=== PATIENT | male | born 1955 | race Caucasian/White ===

== ENCOUNTER 2023-12-18 09:55 | Observation (INO) ==
[2023-12-18 10:48] LABS: Hematocrit (blood only) 39.8 % (42.0-52.0); Hemoglobin 13.9 g/dl (14.0-18.0); Mean Corpuscular Hemoglobin 30.2 pg (25.0-34.0); Mean Corpuscular Hgb Conc 34.9 g/dL (32.0-36.0); Mean Corpuscular Volume 86.5 fL (80.0-100.0); Mean Platelet Volume 10.6 fL (9.4-12.4); Platelet Count 174 K/uL (130-400); RDW Coefficient of Variation 12.7 % (11.5-14.5); RDW Standard Deviation 40.2 fL (36.4-46.3); White Blood Count 8.64 K/ul (4.8-10.8)
[2023-12-18 10:51] LABS: Partial Thromboplastin Time 28 Seconds (21-31)
[2023-12-18 11:03] LABS: Albumin Globulin Ratio 1.4 (0.9-2); Albumin Level 3.9 gm/dl (3.4-5.0); BUN Creatinine Ratio 25.8 (10-20); Bilirubin,Total 0.6 mg/dl (0.2-1.0); Calcium 9.3 mg/dl (8.6-10.3); Creatinine Clr Calc Pharmacy 88.5 ml/min; Est GFR (African American) 101.1 ml/min; Est GFR (Non-African American) 87.2 ml/min; Globulin 2.8 gm/dl (2.5-4.0); Potassium 4.1 mmol/L (3.5-5.1); Total Protein 6.7 gm/dl (6.0-8.3)
[2023-12-18 11:09] LABS: Troponin I High Sensitivity 2.6 pg/ml (0-20)
[2023-12-18 11:24] LABS: Influenza A virus by PCR Negative (Neg); Influenza B virus by PCR Negative (Neg); RSV by PCR Negative (Neg); SARS CoV2 RNA(COVID-19) Ceph NEGATIVE (Negative)
[2023-12-18] MEDS: OPTIRAY 320 100ml IV ONE (11:29)
--- NOTE | 2023-12-18 11:40 | Emergency Department Note ---
Impression & Plan GIB (gastrointestinal bleeding), Abdominal pain, left lower quadrant, Status post colonoscopy with polypectomy ED Provider Note NAME: DEACON ALVAREZ AGE: 68 SEX: M : 1955 ARRIVES VIA: Walk-In INFORMANT: Patient ED PROVIDER(S): Edil Shankar MD CHIEF COMPLAINT: Bloody stool PLAN: Disposition: Admit MEDICAL DECISION MAKING: The patient is a pleasant 68-year-old gentleman past medical history of GERD, BPH, diverticulitis who presents to the emergency department via walk-in, accompanied by his for evaluation of red blood/maroon stools ongoing since this morning in the setting of having a colonoscopy on 12/13 where he had 2 polyps removed. The patient reports that he started to move his bowels a day after his colonoscopy and this was loose and brown but red blood began today. He denies taking any anticoagulation. Otherwise he denies any fevers. He reports some discomfort in his left lower abdomen which he wondered if this could be related to history of diverticulosis/diverticulitis. Of note, the patient did arrive to emergency department during time of high volume, acuity and prolonged emergency department waiting times. Critical pathways initiated from triage. On evaluation the patient is no acute distress, afebrile stable vital signs. He appears clinically dry. Abdomen is benign. Rectal exam was performed and demonstrated maroon/bloody stool that is Hemoccult positive. WBC and platelets within normal limits. H/H13.9/39.8 decreased from hemoglobin of 16 in April 2023 without more recent for comparison. INR is within normal limits. Chemistry without metabolic acidosis. BUN/creatinine 25, consistent with patient's clinically dry appearance. LFTs unremarkable. High-sensitivity troponin 2.6, within normal limits. Stool BioFire and C. difficile PCR pending. COVID-19, influenza and RSV PCR's were negative. CT of the pelvis was performed and did not demonstrate acute abnormalities, fecal retention is noted. Given the persistence of the patient's GI bleeding patient does agree with plan for admission for further management/observation. Case was [place], [facility] [place] who will evaluate the patient for admission. Per hospitalist request I did also inform MASHA JIMENEZ Dr. Case. They will be available for inpatient team consultation. Triage Nursing notes reviewed and agree them. Prior/external medical records reviewed Vital Signs: reviewed Differential diagnosis: Diverticulosis, AVM, coagulopathy, colitis, inflammatory bowel disease, malignancy, Daya-Pyle tear, esophagitis, peptic ulcer disease, variceal bleed, gastritis, epistaxis, fissure, hemorrhoids, as well as other pathologies. ER treatment provided: See below. Diagnostics interpreted by me: ECG: Normal sinus rhythm, 78 bpm, no ectopy, no overt ST ovation depression, QTc 442, QRS 116. Cardiac Monitoring: An order for continuous cardiac monitoring was placed and demonstrated Normal sinus rhythm, 78 bpm, no ectopy. Laboratory studies: See below Imaging studies: See below Consultation(s): [place]. Henry, [facility] Goddard, MD GI. HPI: The patient is a pleasant 68-year-old gentleman past medical history of GERD, BPH, diverticulitis who presents to the emergency department via walk-in, accompanied by his for evaluation of red blood/maroon stools ongoing since this morning in the setting of having a colonoscopy on 12/13 where he had 2 polyps removed. The patient reports that he started to move his bowels a day after his colonoscopy and this was loose and brown but red blood began today. He denies taking any anticoagulation. Otherwise he denies any fevers. He reports some discomfort in his left lower abdomen which he wondered if this could be related to history of diverticulosis/diverticulitis. ROS: See above HPI for pertinent positives & negatives. A total of 10 systems reviewed and were otherwise negative. VITALS:See Below PHYSICAL EXAMINATION: GENERAL: Awake, alert, well-appearing, in no distress HENT: Normocephalic, atraumatic. Oropharynx with dry mucous membranes and otherwise unremarkable. EYES: Normal conjunctiva. Sclera non-icteric. NECK: Supple. No nuchal rigidity. FROM. No JVD. RESPIRATORY: Clear to auscultation. CARDIAC: Regular rate, normal rhythm. Extremities warm and well perfused. Pulses equal. ABDOMEN: Soft, non-distended. No tenderness to palpation. No rebound or guarding. No masses. RECTAL: Maroon stool with red blood. No melena. MUSCULOSKELETAL: Chest examination reveals no tenderness. The back is symmetrical on inspection without obvious abnormality. There is no CVA tenderness to palpation. No joint edema. LOWER EXTREMITIES: Calves are equal size bilaterally and non-tender. No edema. No discoloration. NEURO: Normal sensorium. No sensory or motor deficits noted. SKIN: No rash or jaundice noted. Edil Shankar MD Past Med/Surg History Medical History Seasonal allergies Diverticulosis History of COVID-19 "early 2021" - mild cold symptoms. BPH with obstruction/lower urinary tract symptoms GERD (gastroesophageal reflux disease) Surgical History History of colonoscopy History of surgery tendon repaired - quad x4 History of detached retina repair History of carpal tunnel release right History of arthroscopic knee surgery x2 left x1 right History of vasectomy H/O wisdom tooth extraction History of hernia repair inguinal hernia repair at age 4. Family History Mother Breast cancer Grandfather (Paternal) Colorectal cancer Father Prostate cancer Other No family history of adverse response to anesthesia Denies family history of Ovarian cancer Myocardial infarction Lung cancer Social History Smoking Status: Former smoker Tobacco Type: Cigarettes Age Started Using Tobacco: 15; Age Quit Using Tobacco: 24; packs per day: 0.5; Second Hand Exposure: No; Do You Dip or Chew Tobacco: No; Hx Alcohol Use: No Hx Substance Use: No Preferred Language: Urdu Communication Ability: Effective Visual Impairment: Limited Hearing Ability: Normal Centrifugal Supervisor Required: No Beliefs That Will Affect Care: None marital status: Current Living Situation: Spouse current occupational status: retired How many Children do You have: 2 Other Information That Helps Us Care for You: No Feels Safe at Home: Yes Safety Concerns: Feels Safe At This Time Childhood Exposure to Second-Hand Smoke: No caffeine: Yes Dental Care, Regularly: Yes Physical Activity Frequency: Daily Seatbelt Use: always Sunscreen Use: Yes Assistive Devices: Glasses Allergies Allergies Allergy/AdvReac Type Severity Reaction Status Date / Time cat dander Allergy Severe Verified 12/14/23 09:29 dog dander Allergy Mild Verified 12/14/23 09:29 No Known Drug Allergies Allergy Verified 12/14/23 09:29 pollen extracts AdvReac Severe asthma Verified 12/14/23 09:29 attacks shellfish derived AdvReac Severe "sensitivity" Verified 12/14/23 09:29 severe GI distress Home Meds Home Medications Medication Instructions Recorded Confirmed albuterol sulfate 90 mcg/actuation 2 puff inhalation Q6H PRN rescue 10/27/22 12/18/23 aerosol inhaler (Ventolin HFA) inhaler ascorbic acid (vitamin C) 250 mg 250 mg PO BID 10/27/22 12/18/23 tablet aspirin 81 mg tablet,delayed 81 mg PO QPM 10/27/22 12/18/23 release (Adult Low Dose Aspirin) cholecalciferol (vitamin D3) 125 125 mcg PO QAM 10/27/22 12/18/23 mcg (5,000 unit) capsule ibuprofen 200 mg tablet 400 mg PO Q6H PRN Pain 10/27/22 12/18/23 melatonin 3 mg capsule 3 mg PO HS PRN Insomnia 10/27/22 12/18/23 metronidazole 0.75 % topical gel 1 applic topical BID 10/27/22 12/18/23 minocycline 50 mg capsule 50 mg PO QPM roscea 10/27/22 12/18/23 montelukast 10 mg tablet 10 mg PO HS 10/27/22 12/18/23 vitamin B complex 1 tab PO DAILY 10/27/22 12/18/23 fluticasone propionate 50 2 spray intranasal DAILY 04/27/23 12/18/23 mcg/actuation nasal spray,suspension acetaminophen 650 mg 1,300 mg PO HS 11/30/23 12/18/23 tablet,extended release (Tylenol 8 Hour) antiarthritic combination no.2 900 900 mg PO BID 11/30/23 12/18/23 mg tablet (glucosamine-chondroitin) alprazolam 0.5 mg tablet (Xanax) 0.5 mg PO HS 12/02/23 12/18/23 esomeprazole magnesium 40 mg 40 mg PO QPM 12/02/23 12/18/23 capsule,delayed release (Nexium) fexofenadine 180 mg tablet 180 mg PO QAM PRN seasonal 12/02/23 12/18/23 allergies hyoscyamine sulfate 0.125 mg 0.125 mg PO TID 12/02/23 12/18/23 tablet (Levsin) quercetin 250 mg PO BID 12/02/23 12/18/23 vitamin E 400 unit tablet 400 unit PO QPM 12/02/23 12/18/23 zinc 15 mg tablet 15 mg PO BID 12/02/23 12/18/23 Results & Data (ED) Vital Signs Vital Signs - 24 hr 12/18/23 09:58 12/18/23 10:34 12/18/23 12:08 Temperature 36.6 C Temperature Source Temporal Artery Scan Pulse Rate 100 H 89 Pulse Rate [Apical] 79 Respiratory Rate 20 18 Respiratory Effort / Characteristics Non-Labored Non-Labored Spontaneous Respiratory Depth Normal Normal Respiratory Pattern Regular Blood Pressure 112/53 L Blood Pressure [Right Arm] 106/81 Blood Pressure Mean 72 Blood Pressure Mean [Right Arm] 89 Blood Pressure Position [Right Arm] Pulse Oximetry 99 98 Oxygen Delivery Method Room Air Room Air Sepsis Recent Fever Within 48 Hours No Sepsis New/Unexplained Change in Mental Status No Sepsis Action Taken by Nursing No Action Required 12/18/23 12:09 12/18/23 14:11 12/18/23 14:26 Temperature Temperature Source Pulse Rate 84 Pulse Rate [Apical] 85 Respiratory Rate 18 Respiratory Effort / Characteristics Non-Labored Spontaneous Respiratory Depth Normal Respiratory Pattern Regular Blood Pressure Blood Pressure [Right Arm] 107/83 Blood Pressure Mean Blood Pressure Mean [Right Arm] 91 Blood Pressure Position [Right Arm] Lying Pulse Oximetry 98 97 Oxygen Delivery Method Room Air Room Air Sepsis Recent Fever Within 48 Hours Sepsis New/Unexplained Change in Mental Status Sepsis Action Taken by Nursing 12/18/23 16:00 Temperature Temperature Source Pulse Rate Pulse Rate [Apical] 90 Respiratory Rate Respiratory Effort / Characteristics Respiratory Depth Respiratory Pattern Blood Pressure Blood Pressure [Right Arm] 122/84 Blood Pressure Mean Blood Pressure Mean [Right Arm] 96 Blood Pressure Position [Right Arm] Lying Pulse Oximetry Oxygen Delivery Method Sepsis Recent Fever Within 48 Hours Sepsis New/Unexplained Change in Mental Status Sepsis Action Taken by Nursing Laboratory Data Attestation: I reviewed the patient's lab results. 12/19/23 01:17 12/18/23 10:22 Lab Results 12/18/23 12/18/23 12/18/23 Range/Units 10:21 10:22 10:25 WBC 8.64 (4.8-10.8) K/ul RBC 4.60 L (4.70-6.10) M/uL Hgb 13.9 L (14.0-18.0) g/dl Hct 39.8 L (42.0-52.0) % MCV 86.5 (80.0-100.0) fL MCH 30.2 (25.0-34.0) pg MCHC 34.9 (32.0-36.0) g/dL RDW Std Deviation 40.2 (36.4-46.3) fL RDW Coeff of Chase 12.7 (11.5-14.5) % Plt Count 174 (130-400) K/uL MPV 10.6 (9.4-12.4) fL PT 11.0 (9.0-12.0) Seconds INR 1.0 (0.9-1.1) APTT 28 (21-31) Seconds PTT Ratio 1.0 Sodium 139 (136-145) mmol/L Potassium 4.1 (3.5-5.1) mmol/L Chloride 106 (98-107) mmol/L Carbon Dioxide 27 (21-32) mmol/L Anion Gap 6 (3-11) BUN 23 (6-23) mg/dl Creatinine 0.89 (0.6-1.4) mg/dl Est Cr Clr Drug Dosing 88.5 ml/min Est GFR ( Amer) 101.1 ml/min Est GFR (Non-Af Amer) 87.2 ml/min BUN/Creatinine Ratio 25.8 H (10-20) Glucose 102 H (70-99(Fasting)) mg/dl Calcium 9.3 (8.6-10.3) mg/dl Total Bilirubin 0.6 (0.2-1.0) mg/dl AST 18 (13-39) U/L ALT 19 (7-52) U/L Alkaline Phosphatase 63 (34-104) U/L Troponin I High Sens 2.6 (0-20) pg/ml Total Protein 6.7 (6.0-8.3) gm/dl Albumin 3.9 (3.4-5.0) gm/dl Globulin 2.8 (2.5-4.0) gm/dl Albumin/Globulin Ratio 1.4 (0.9-2) POC Stool Occult Blood (Negative) Stl C. cayetanensis PCR (NotDetected) Stool Rotavirus A PCR (NotDetected) Stl Adenov F 40/41 PCR (NotDetected) Stool Astrovirus (PCR) (NotDetected) Stool Campylobacter PCR (NotDetected) Stl C. diff Tox B Gene (Neg) Stool Cryptosporidium PCR (NotDetected) Stl E.coli Shiga Tox PCR (NotDetected) Stl Enterotoxigenic E PCR (NotDetected) Stool EPEC (PCR) (NotDetected) Stool EAEC (PCR) (NotDetected) Stl E. histolytica PCR (NotDetected) Stool Giardia Lamblia PCR (NotDetected) Stool Salmonella PCR (NotDetected) Stool Sapovirus (PCR) (NotDetected) Stl P. shigelloides PCR (NotDetected) Stl Shigella/EIEC PCR (NotDetected) St Y.enterocolitica PCR (NotDetected) Stool Vibrio (PCR) (NotDetected) Stl Vibrio cholerae PCR (NotDetected) Stl Norovirus GI/GII PCR (NotDetected) SARS-CoV-2 (PCR) NEGATIVE (Negative) Influenza Type A (PCR) Negative (Neg) Influenza Type B (PCR) Negative (Neg) RSV (RT-PCR) Negative (Neg) Blood Type A Positive Antibody Screen NEGATIVE 12/18/23 12/18/23 Range/Units 15:58 16:15 WBC (4.8-10.8) K/ul RBC (4.70-6.10) M/uL Hgb (14.0-18.0) g/dl Hct (42.0-52.0) % MCV (80.0-100.0) fL MCH (25.0-34.0) pg MCHC (32.0-36.0) g/dL RDW Std Deviation (36.4-46.3) fL RDW Coeff of Chase (11.5-14.5) % Plt Count (130-400) K/uL MPV (9.4-12.4) fL PT (9.0-12.0) Seconds INR (0.9-1.1) APTT (21-31) Seconds PTT Ratio Sodium (136-145) mmol/L Potassium (3.5-5.1) mmol/L Chloride (98-107) mmol/L Carbon Dioxide (21-32) mmol/L Anion Gap (3-11) BUN (6-23) mg/dl Creatinine (0.6-1.4) mg/dl Est Cr Clr Drug Dosing ml/min Est GFR ( Amer) ml/min Est GFR (Non-Af Amer) ml/min BUN/Creatinine Ratio (10-20) Glucose (70-99(Fasting)) mg/dl Calcium (8.6-10.3) mg/dl Total Bilirubin (0.2-1.0) mg/dl AST (13-39) U/L ALT (7-52) U/L Alkaline Phosphatase (34-104) U/L Troponin I High Sens (0-20) pg/ml Total Protein (6.0-8.3) gm/dl Albumin (3.4-5.0) gm/dl Globulin (2.5-4.0) gm/dl Albumin/Globulin Ratio (0.9-2) POC Stool Occult Blood Positive A (Negative) Stl C. cayetanensis PCR Not Detected (NotDetected) Stool Rotavirus A PCR Not Detected (NotDetected) Stl Adenov F 40/41 PCR Not Detected (NotDetected) Stool Astrovirus (PCR) Not Detected (NotDetected) Stool Campylobacter PCR Not Detected (NotDetected) Stl C. diff Tox B Gene Negative Cdiff Gene (Neg) Stool Cryptosporidium PCR Not Detected (NotDetected) Stl E.coli Shiga Tox PCR Not Detected (NotDetected) Stl Enterotoxigenic E PCR Not Detected (NotDetected) Stool EPEC (PCR) Not Detected (NotDetected) Stool EAEC (PCR) Not Detected (NotDetected) Stl E. histolytica PCR Not Detected (NotDetected) Stool Giardia Lamblia PCR Not Detected (NotDetected) Stool Salmonella PCR Not Detected (NotDetected) Stool Sapovirus (PCR) Not Detected (NotDetected) Stl P. shigelloides PCR Not Detected (NotDetected) Stl Shigella/EIEC PCR Not Detected (NotDetected) St Y.enterocolitica PCR Not Detected (NotDetected) Stool Vibrio (PCR) Not Detected (NotDetected) Stl Vibrio cholerae PCR Not Detected (NotDetected) Stl Norovirus GI/GII PCR Not Detected (NotDetected) SARS-CoV-2 (PCR) (Negative) Influenza Type A (PCR) (Neg) Influenza Type B (PCR) (Neg) RSV (RT-PCR) (Neg) Blood Type Antibody Screen Administered Medications Lactated Ringer's (Lr) 1,000 mls @ 125 mls/hr IV .Q8H RAVINDER Stop: 01/17/24 16:44 Last Admin: 12/18/23 23:58 Dose: 125 mls/hr Documented By: Infusion: 12/18/23 23:58 Dose: Infused Documented By: Admin: 12/18/23 16:45 Dose: 125 mls/hr Documented By: TERRENCE Discontinued Medications Sodium Chloride (Nss) 1,000 mls @ 999 mls/hr IV .Q1H1M ONE Stop: 12/18/23 12:12 Last Infusion: 12/18/23 13:14 Dose: Infused Documented By: Admin: 12/18/23 11:44 Dose: 999 mls/hr Documented By: JOANNK Pantoprazole Sodium 40 mg/ (Syringe) 10 mls @ 5 mls/min IV NOW ONE Stop: 12/18/23 17:15 Last Admin: 12/18/23 19:40 Dose: 5 mls/min Documented By: HIEN Ioversol (Optiray 320 100ml) 93 ml IV ONCE ONE Stop: 12/18/23 11:30 Last Admin: 12/18/23 11:29 Dose: 93 ml Documented By: ANUPAM Imaging Data Radiologist's Impression: Abdomen/Pelvis CT 12/18/23 11:[address] WITH IV CONTRAST CT DOSE: 1229.5 mGy.cm HISTORY: abd pain, red blood per rectum TECHNIQUE: Multiaxial CT images of the abdomen and pelvis were performed following the use of intravenous contrast. A dose lowering technique was utilized adhering to the principles of ALARA. COMPARISON STUDY: Abdomen and pelvis CT 10/27/2022. FINDINGS: Minimal tree-in-bud nodules again noted within the right middle lobe. The left lung base is clear. No pneumoperitoneum. No pneumatosis. Degenerative changes within the lumbar spine. No acute fractures. The liver, gallbladder, pancreas, spleen, and adrenal glands are unremarkable. The kidneys enhance normally. No hydronephrosis. Mild calcified plaque within the normal caliber abdominal aorta. The main portal vein is patent. No retroperitoneal or pelvic lymphadenopathy. No pelvic free fluid. The prostate gland remains mildly enlarged. No bladder wall thickening. Moderate fecal retention. No bowel wall thickening or obstruction. Colonic diverticulosis. No evidence for acute diverticulitis. Normal appendix. IMPRESSION: 1. No bowel wall thickening or obstruction. 2. Colonic diverticulosis. No evidence for acute diverticulitis. 3. Moderate fecal retention. 4. Prostatomegaly, unchanged. ACT 112: Negative or not required by law. Electronically signed by: Ronald Cheatham M.D. 12/18/2023 12:07 PM Discharge Plan Visit Data Chief Complaint: Rectal Bleed Stated Complaint: HAD COLONOSCOPY 12/14/23 - BLOOD IN STOOL ED Provider: Edil Shankar Discharge Problem: GIB (gastrointestinal bleeding), Abdominal pain, left lower quadrant, Status post colonoscopy with polypectomy Patient Disposition: Admitted As Inpatient Discharge Instructions Interventions: ED Discharge Assessment Last Done: 12/18/23 21:28 Discharge Problem: GIB (gastrointestinal bleeding) Qualifiers: GI bleed type/associated pathology: unspecified gastrointestinal hemorrhage type Qualified Code(s): K92.2 - Gastrointestinal hemorrhage, unspecified
[2023-12-18] MEDS: SODIUM CHLORIDE 0.9% 1,000 ML IV ONE (11:44)
--- NOTE | 2023-12-18 12:09 | CT Scan Report ---
ABDOMEN AND PELVIS CT WITH IV CONTRAST CT DOSE: 1229.5 mGy.cm HISTORY: abd pain, red blood per rectum TECHNIQUE: Multiaxial CT images of the abdomen and pelvis were performed following the use of intrave nous contrast. A dose lowering technique was utilized adhering to the principles of ALARA. COMPARISON STUDY: Abdomen and pelvis CT 10/27/2022. FINDINGS: Minimal tree-in-bud nodules again noted within the right middle lobe. The left lung base is clear. No pneumoperitoneum. No pneumatosis. Degenerative changes within the lumbar spine. No acute f ractures. The liver, gallbladder, pancreas, spleen, and adrenal glands are unremarkable. The kidneys enhance normally. No hydronephrosis. Mild calcified plaque within the normal caliber abdominal aorta. The main portal vein is patent. No retroperitoneal or pelvic lymphadenopathy. No pelvic free fluid. The prostate gland remains mildly enlarged. No bladder wall thickening. Moderate fecal retention. No bowel wall thickening or obstruction. Colonic diverticulosis. No evidence for acute diverticulitis. N ormal appendix. IMPRESSION: 1. No bowel wall thickening or obstruction. 2. Colonic diverticulosis. No evidence for acute diverticulitis. 3. Moderate fecal retention. 4. Prostatomegaly, unchanged. ACT 112: Negative or not required by law. Electronically signed by: Ronald Cheatham M.D. 12/18/2023 12:07 PM
--- NOTE | 2023-12-18 16:17 | Electrocardiogram Report ---
Test Reason : Blood Pressure : / mmHG Vent. Rate : 078 BPM Atrial Rate : 078 BPM P-R Int : 164 ms QRS Dur : 116 ms QT Int : 388 ms P-R-T Axes : 033 -32 045 degrees QTc Int : 442 ms Normal sinus rhythm Left axis deviation Abnormal ECG When compared with ECG of 20-NOV-2013 13:43, No significant change was found Confirmed by Faisal Hicks ([id number]) on 12/18/2023 4:17:21 PM Referred By: REFERRED SELF Confirmed By:Faisal Hicks
--- NOTE | 2023-12-18 16:36 | History & Physical Report ---
Date of Service December 18, 2023 Assessment & Plan (1) Upper GI bleed: Plan: Loose/bloody stool at the beginning the morning of 12/17 x 4 episodes throughout the day Patient describes it as a "raspberry jelly-like" texture and color; denies melena Colonoscopy on 12/13 Hemoccult positive on arrival Hgb 13.9 on arrival BUN/creatinine elevated at 25.8 A/P revealed diverticulosis without evidence of diverticulitis Likely suspect a lower GI bleed in the setting of recent colonoscopy Strict n.p.o. IVF with LR at 125mL/hr Trend H&H q4h x 3 Blood informed consent obtained; type & screen Avoid NSAIDs/aspirin A.m. CBC, BMP (2) GERD (gastroesophageal reflux disease): Plan: Nexium 40 mg p.o. --> Protonix 40 mg IV daily Plan Disposition: Obs -admit to [facility] telemetry Full code Keep n.p.o. for now VTE PPx: SCDs History of Present Illness Chief Complaint: Rectal bleed Primary Care Provider: Jerald Sandhu MD Jonas is a 68-year-old male with PMH of BPH, GERD, asthma, diverticulitis, and sleep disorder. He presented for loose/bloody stool that began the morning of 12/17. Patient reports that he has had 4 episodes of "jellylike" dark red stool throughout the day on 12/17. He reports that it has been loose and "raspberry- colored"; not necessarily dark, tarry stool. Of note, the patient had a colonoscopy on Wednesday 12/[address] Casillas, and reports he was feeling okay postop. Throughout the week he did endorse some intermittent LLQ pain, which he rated 5/10 at worst and 0/10 at present. No radiation. He characterizes it as a dull achy pain. He tried taking an antispasmodic, but this did not alleviate the pain. Patient occasionally does take Tylenol for his knees. He denies any recent ibuprofen or Advil use. He does take aspirin daily as a prophylactic; he reports that he was feeling okay postop. He did not take any of his regular morning medications; no recent change in medications. Patient last ate and drank the night prior on 12/16. No prior experiences like this one. No PMH of gastric ulcers, blood transfusions, or GI bleeds. He does have a history of diverticulosis, and was placed on ciprofloxacin 1 year ago for presumed diverticulitis. No recent change in diet. Patient's vitals are stable at time of admission; normotensive. ED course: NSS 1000 mL IV LR 1000 mL IV ROS: Patient endorses malaise, sinus congestion, headache, intermittent LLQ pain, bl oody (jelly-like) stool x 4 episodes, and straining with urination. Patient denies fever, chills, dizziness, lightheadedness, chest pain, SOB, N/V, blood in urine, or burning with urination. Allergies Allergy/AdvReac Type Severity Reaction Status Date / Time cat dander Allergy Severe Verified 12/14/23 09:29 dog dander Allergy Mild Verified 12/14/23 09:29 No Known Drug Allergies Allergy Verified 12/14/23 09:29 pollen extracts AdvReac Severe asthma Verified 12/14/23 09:29 attacks shellfish derived AdvReac Severe "sensitivity" Verified 12/14/23 09:29 severe GI distress Home Medications Medication Instructions Recorded Confirmed Type albuterol sulfate 90 mcg/actuation 2 puff inhalation Q6H PRN rescue 10/27/22 12/18/23 History aerosol inhaler (Ventolin HFA) inhaler ascorbic acid (vitamin C) 250 mg 250 mg PO BID 10/27/22 12/18/23 History tablet aspirin 81 mg tablet,delayed 81 mg PO QPM 10/27/22 12/18/23 History release (Adult Low Dose Aspirin) cholecalciferol (vitamin D3) 125 125 mcg PO QAM 10/27/22 12/18/23 History mcg (5,000 unit) capsule ibuprofen 200 mg tablet 400 mg PO Q6H PRN Pain 10/27/22 12/18/23 History melatonin 3 mg capsule 3 mg PO HS PRN Insomnia 10/27/22 12/18/23 History metronidazole 0.75 % topical gel 1 applic topical BID 10/27/22 12/18/23 History minocycline 50 mg capsule 50 mg PO QPM roscea 10/27/22 12/18/23 History montelukast 10 mg tablet 10 mg PO HS 10/27/22 12/18/23 History vitamin B complex 1 tab PO DAILY 10/27/22 12/18/23 History fluticasone propionate 50 2 spray intranasal DAILY 04/27/23 12/18/23 History mcg/actuation nasal spray,suspension acetaminophen 650 mg 1,300 mg PO HS 11/30/23 12/18/23 History tablet,extended release (Tylenol 8 Hour) antiarthritic combination no.2 900 900 mg PO BID 11/30/23 12/18/23 History mg tablet (glucosamine-chondroitin) alprazolam 0.5 mg tablet (Xanax) 0.5 mg PO HS 12/02/23 12/18/23 History esomeprazole magnesium 40 mg 40 mg PO QPM 12/02/23 12/18/23 History capsule,delayed release (Nexium) fexofenadine 180 mg tablet 180 mg PO QAM PRN seasonal 12/02/23 12/18/23 History allergies hyoscyamine sulfate 0.125 mg 0.125 mg PO TID 12/02/23 12/18/23 History tablet (Levsin) quercetin 250 mg PO BID 12/02/23 12/18/23 History vitamin E 400 unit tablet 400 unit PO QPM 12/02/23 12/18/23 History zinc 15 mg tablet 15 mg PO BID 12/02/23 12/18/23 History Past Med/Surg History Medical History Seasonal allergies Diverticulosis History of COVID-19 "early 2021" - mild cold symptoms. BPH with obstruction/lower urinary tract symptoms GERD (gastroesophageal reflux disease) Surgical History History of colonoscopy History of surgery tendon repaired - quad x4 History of detached retina repair History of carpal tunnel release right History of arthroscopic knee surgery x2 left x1 right History of vasectomy H/O wisdom tooth extraction History of hernia repair inguinal hernia repair at age 4. Family History Mother Breast cancer Grandfather (Paternal) Colorectal cancer Father Prostate cancer Other No family history of adverse response to anesthesia Denies family history of Ovarian cancer Myocardial infarction Lung cancer Social History Smoking Status: Former smoker Tobacco Type: Cigarettes Age Started Using Tobacco: 15; Age Quit Using Tobacco: 24; packs per day: 0.5; Second Hand Exposure: No; Do You Dip or Chew Tobacco: No; Hx Alcohol Use: No Hx Substance Use: No Preferred Language: Liberian Communication Ability: Effective Visual Impairment: Limited Hearing Ability: Normal Liquor Rectifier Required: No Beliefs That Will Affect Care: None marital status: Current Living Situation: Spouse current occupational status: retired How many Children do You have: 2 Other Information That Helps Us Care for You: No Feels Safe at Home: Yes Safety Concerns: Feels Safe At This Time Childhood Exposure to Second-Hand Smoke: No caffeine: Yes Dental Care, Regularly: Yes Physical Activity Frequency: Daily Seatbelt Use: always Sunscreen Use: Yes Assistive Devices: Glasses Review of Systems Review of Systems: See HPI above Physical Exam Physical Exam: General: no acute distress; non-toxic appearing; well-nourished; cooperative HEENT: normocephalic, atraumatic; no scleral icterus; PERRLA w/ EOMs intact; moist mucus membrane; vision and hearing grossly intact Neck: supple; no lymphadenopathy; trachea midline Skin: warm, dry without signs of tenting; no cyanosis; no rashes, bruising, lesions, or erythema noted CV: chest wall NTP; RRR; S1/S2 normal; no murmurs/rubs/gallops; pulses intact and symmetric at radial, DP, and PT Lungs: no acute respiratory distress; symmetrical chest wall expansion; clear breath sounds across all lung alvarado w/o adventitious sounds; no wheezing ABD: Soft; LLQ is mildly TTP; BS present; no rebound/guarding; no distention; no signs of active bleeding on the abdomen or flanks MSK: no tics or fasciculations; no edema noted in the LEs b/l, nonerythematous Neuro: A&Ox3; normal mood and affect; fluent speech; no focal deficits; sensation grossly intact in the LEs b/l Results & Data Results & Data Vital Signs (Past 12 Hours) Vital Signs Temp Pulse Pulse Resp BP BP Pulse Ox 12/18/23 16:00 90 122/84 12/18/23 14:26 84 12/18/23 14:11 85 18 107/83 97 12/18/23 12:09 98 12/18/23 12:08 79 18 106/81 98 12/18/23 10:34 89 12/18/23 09:58 36.6 C 100 H 20 112/53 L 99 O2 Del Method 12/18/23 16:00 12/18/23 14:26 12/18/23 14:11 Room Air 12/18/23 12:09 Room Air 12/18/23 12:08 Room Air 12/18/23 10:34 12/18/23 09:58 Room Air Laboratory Results Abnormal lab results 12/18/23 12/18/23 Range/Units 10:22 16:15 RBC 4.60 L (4.70-6.10) M/uL Hgb 13.9 L (14.0-18.0) g/dl Hct 39.8 L (42.0-52.0) % BUN/Creatinine Ratio 25.8 H (10-20) Glucose 102 H (70-99(Fasting)) mg/dl POC Stool Occult Blood Positive A (Negative) Diagnostic Findings Abdomen/Pelvis CT 12/18/23 11:[address] WITH IV CONTRAST CT DOSE: 1229.5 mGy.cm HISTORY: abd pain, red blood per rectum TECHNIQUE: Multiaxial CT images of the abdomen and pelvis were performed following the use of intravenous contrast. A dose lowering technique was utilized adhering to the principles of ALARA. COMPARISON STUDY: Abdomen and pelvis CT 10/27/2022. FINDINGS: Minimal tree-in-bud nodules again noted within the right middle lobe. The left lung base is clear. No pneumoperitoneum. No pneumatosis. Degenerative changes within the lumbar spine. No acute fractures. The liver, gallbladder, pancreas, spleen, and adrenal glands are unremarkable. The kidneys enhance normally. No hydronephrosis. Mild calcified plaque within the normal caliber abdominal aorta. The main portal vein is patent. No retroperitoneal or pelvic lymphadenopathy. No pelvic free fluid. The prostate gland remains mildly enlarged. No bladder wall thickening. Moderate fecal retention. No bowel wall thickening or obstruction. Colonic diverticulosis. No evidence for acute diverticulitis. Normal appendix. IMPRESSION: 1. No bowel wall thickening or obstruction. 2. Colonic diverticulosis. No evidence for acute diverticulitis. 3. Moderate fecal retention. 4. Prostatomegaly, unchanged. ACT 112: Negative or not required by law. Electronically signed by: Ronald Cheatham M.D. 12/18/2023 12:07 PM Code Status & VTE Plan Code Status Full code VTE Prophylaxis Plan VTE Prophylaxis will be ordered: Yes Supervising Physician Co-Signing Physician Notes Patient seen and examined, chart reviewed, case discussed with Ronald Meléndez and I agree with the assessment and plan as above except as otherwise noted Labs and images reviewed Jonas is 68-year-old male with a history of diverticulosis/diverticulitis, BPH, GERD who underwent a screening colonoscopy on 12/14/2023. At that time 2 sessile polyps were found in the ascending colon, 4-8 mm polyps were removed with hot snare with no blood loss. Nonbleeding hemorrhoids were noted. Diverticulitis was noted. No complications at that time. Following procedure patient initially did well for a day or 2 with normal bowel movement, subsequently has had bloody/maroon-colored stool without melena/tarry/coffee-ground quality. He does not have epigastric pain, and elevated BUN, or melena suggest upper GI bleed. Does have some left lower quadrant pain. CTA/P with contrast shows no acute diverticulitis, moderate fecal retention, no active extravasation is noted.Most likely lower GI bleed, PPI bolus/twice daily dosing not currently indicated, home PPI converted to Protonix 40 mg daily. H&H 13.9, last baseline was 04/27/2023 16.0 at that time. He is not tachycardic or hypotensive. IV FM continued, strict n.p.o., GI consulted. H&H every 6 hours. Blood consent signed, 2 units crossed. No indication for transfusion at this time, transfusion threshold 7.7 or hemodynamic instability/symptoms with acute bleed. Agree with assessment and management as above PG Care Time/CCT Total # of Minutes Spent Total Time Spent with Patient: Total time spent is greater than 50% in coordination of care (as documented) at patient's floor/unit and/or counseling patient: Coding [place] [address] INT INP/OBS CARE 2/55MIN Patient Type Established History Comprehensive Exam Comprehensive Medical Decision Making Moderate Complexity Diagnoses Upper GI bleed K92.2 GERD (gastroesophageal reflux disease) K21.9
[2023-12-18] MEDS: LACTATED RINGER'S 1,000 ML IV SCH (16:45)
[2023-12-18 18:13] LABS: Adenovirus F 40/41 PCR Not Detected (NotDetected); Astrovirus PCR Not Detected (NotDetected); Campylobacter PCR Not Detected (NotDetected); Cryptosporidium PCR Not Detected (NotDetected); Cyclospora cayetanensis PCR Not Detected (NotDetected); Entamoeba histolytica PCR Not Detected (NotDetected); Enteroaggregative E.coli(EAEC) Not Detected (NotDetected); Enteropathogenic E.coli (EPEC) Not Detected (NotDetected); Enterotoxigenic E.coli (ETEC) Not Detected (NotDetected); Giardia lamblia PCR Not Detected (NotDetected); Norovirus GI/GII PCR Not Detected (NotDetected); Plesiomonas shigelloides PCR Not Detected (NotDetected); Rotavirus A PCR Not Detected (NotDetected); Salmonella PCR Not Detected (NotDetected); Sapovirus PCR Not Detected (NotDetected); Shiga-like Toxin E.coli (STEC) Not Detected (NotDetected); Shigella/Enteroinvasive E.coli Not Detected (NotDetected); Vibrio cholerae PCR Not Detected (NotDetected); Vibrio species PCR Not Detected (NotDetected); Yersinia enterocolitica PCR Not Detected (NotDetected)
[2023-12-18] MEDS: PANTOprazole 40 MG in SYRINGE 0 ML IV ONE (19:40)
[2023-12-18] MEDS ORDERED: ALBUTEROL HFA 8 GM INHALER INH PRN (21:34)
[2023-12-18] MEDS ORDERED: ONDANSETRON INJ 2 MG/ML 2 ML VIAL IV PRN (21:34)
[2023-12-18] MEDS ORDERED: ACETAMINOPHEN 1,000 MG/100 ML VIAL IV PRN (21:34)
[2023-12-18 21:54] LABS: Hematocrit (blood only) 40.2 % (42.0-52.0); Hemoglobin 14.2 g/dl (14.0-18.0)
[2023-12-19 01:48] LABS: Hematocrit (blood only) 35.2 % (42.0-52.0); Hemoglobin 12.4 g/dl (14.0-18.0)
[2023-12-19 06:50] LABS: Basophils # (auto) 0.02 K/uL (0.00-0.20); Basophils % (auto) 0.3 %; Eosinophils # (auto) 0.07 K/uL (0.00-0.50); Hematocrit (blood only) 36.9 % (42.0-52.0); Hemoglobin 12.6 g/dl (14.0-18.0); Immature Granulocytes # (auto) 0.03 K/uL (0.01-0.20); Immature Granulocytes % (auto) 0.4 %; Lymphocytes # (auto) 1.72 K/uL (1.20-3.40); Lymphocytes % (auto) 23.9 %; Mean Corpuscular Hgb Conc 34.1 g/dL (32.0-36.0); Mean Corpuscular Volume 87.9 fL (80.0-100.0); Mean Platelet Volume 10.7 fL (9.4-12.4); Monocytes # (auto) 0.75 K/uL (0.11-0.59); Monocytes % (auto) 10.4 %; Platelet Count 147 K/uL (130-400); RDW Coefficient of Variation 12.7 % (11.5-14.5); RDW Standard Deviation 40.9 fL (36.4-46.3); White Blood Count 7.19 K/ul (4.8-10.8)
[2023-12-19 07:28] LABS: BUN Creatinine Ratio 16.9 (10-20); Creatinine Clr Calc Pharmacy 88.5 ml/min; Est GFR (African American) 101.1 ml/min; Est GFR (Non-African American) 87.2 ml/min; Potassium 4.2 mmol/L (3.5-5.1)
[2023-12-19] MEDS: FLUTICASONE PROPIONATE NA SPR 16 GM BTL SCH (09:57)
--- NOTE | 2023-12-19 10:15 | Gastrointestinal Consultation ---
Date of Consultation December 19, 2023 Assessment & Plan (1) GIB (gastrointestinal bleeding): Pleasant man with post polypectomy bleeding. His story is not completely typical of post polypectomy bleeding as that is usually sort of like diverticular bleeding and it is usually clear when it starts and when it stops. Some of his description of his bleeding sounds hemorrhoidal in nature especially with the amount of stool in his rectum as seen on CT scan. His H/H are remaining stable. I think if his frequency decreases or if the bleeding stops he could go home this after noon for Easter as long as he has follow up next week and understands when to return--i.e. bleeding restarts. I did suggest he hold his baby aspirin for the next week or so. If the bleeding restarts or becomes clinically significant we will need to prep him to try to find polyp site to see if bleeding. Perhaps the bleeding started as a post polypectomy bleed and he is either clearing out the little blood that is left or his hemorrhoids are contributing to the picture. At this time I don't plan to redo his colonoscopy but will step in if his bleeding worsens. Post polypectomy bleeds typically present brisk but most often stop without intervention. History of Present Illness Reason for Consultation: rectal bleeding Attending Physician: Ammon Henry MD History of Present Illness 68 year old man who had a colonoscopy by Dr. Casillas on Thursday who started passing blood yesterday morning. He described loose bowel movement at 4:30 am but he didn't look. He went two times within a half hour later that morning and there was blood and stool with the water being red. Since then he is "dribbling stool" when he has a bowel movement and it looks purplish. He still goes fairly frequently but not much volume and the water no longer turns red. There is no pain with it. There is no urgency. He has gone to bathroom and only passed gas. He had two smaller polyps removed by hot snare from his ascending colon, also had diverticular disease and internal hemorrhoids. Allergies Allergy/AdvReac Type Severity Reaction Status Date / Time cat dander Allergy Severe Verified 12/14/23 09:29 dog dander Allergy Mild Verified 12/14/23 09:29 No Known Drug Allergies Allergy Verified 12/14/23 09:29 pollen extracts AdvReac Severe asthma Verified 03/25/24 09:29 attacks shellfish derived AdvReac Severe "sensitivity" Verified 12/14/23 09:29 severe GI distress Home Medications Medication Instructions Recorded Confirmed Type albuterol sulfate 90 mcg/actuation 2 puff inhalation Q6H PRN rescue 10/27/22 12/18/23 History aerosol inhaler (Ventolin HFA) inhaler ascorbic acid (vitamin C) 250 mg 250 mg PO BID 10/27/22 12/18/23 History tablet aspirin 81 mg tablet,delayed 81 mg PO QPM 10/27/22 12/18/23 History release (Adult Low Dose Aspirin) cholecalciferol (vitamin D3) 125 125 mcg PO QAM 10/27/22 12/18/23 History mcg (5,000 unit) capsule ibuprofen 200 mg tablet 400 mg PO Q6H PRN Pain 10/27/22 12/18/23 History melatonin 3 mg capsule 3 mg PO HS PRN Insomnia 10/27/22 12/18/23 History metronidazole 0.75 % topical gel 1 applic topical BID 10/27/22 12/18/23 History minocycline 50 mg capsule 50 mg PO QPM roscea 10/27/22 12/18/23 History montelukast 10 mg tablet 10 mg PO HS 10/27/22 12/18/23 History vitamin B complex 1 tab PO DAILY 10/27/22 12/18/23 History fluticasone propionate 50 2 spray intranasal DAILY 04/27/23 12/18/23 History mcg/actuation nasal spray,suspension acetaminophen 650 mg 1,300 mg PO HS 11/30/23 12/18/23 History tablet,extended release (Tylenol 8 Hour) antiarthritic combination no.2 900 900 mg PO BID 11/30/23 12/18/23 History mg tablet (glucosamine-chondroitin) alprazolam 0.5 mg tablet (Xanax) 0.5 mg PO HS 12/02/23 12/18/23 History esomeprazole magnesium 40 mg 40 mg PO QPM 12/02/23 12/18/23 History capsule,delayed release (Nexium) fexofenadine 180 mg tablet 180 mg PO QAM PRN seasonal 12/02/23 12/18/23 History allergies hyoscyamine sulfate 0.125 mg 0.125 mg PO TID 12/02/23 12/18/23 History tablet (Levsin) quercetin 250 mg PO BID 12/02/23 12/18/23 History vitamin E 400 unit tablet 400 unit PO QPM 12/02/23 12/18/23 History zinc 15 mg tablet 15 mg PO BID 12/02/23 12/18/23 History Patient History Medical History Seasonal allergies Diverticulosis History of COVID-19 "early 2021" - mild cold symptoms. BPH with obstruction/lower urinary tract symptoms GERD (gastroesophageal reflux disease) Surgical History History of colonoscopy History of surgery tendon repaired - quad x4 History of detached retina repair History of carpal tunnel release right History of arthroscopic knee surgery x2 left x1 right History of vasectomy H/O wisdom tooth extraction History of hernia repair inguinal hernia repair at age 4. Family History Mother Breast cancer Grandfather (Paternal) Colorectal cancer Father Prostate cancer Other No family history of adverse response to anesthesia Denies family history of Ovarian cancer Myocardial infarction Lung cancer Social History Smoking Status: Former smoker Tobacco Type: Cigarettes Age Started Using Tobacco: 15; Age Quit Using Tobacco: 24; packs per day: 0.5; Second Hand Exposure: No; Do You Dip or Chew Tobacco: No; Hx Alcohol Use: No Hx Substance Use: No Preferred Language: Faroese Communication Ability: Effective Visual Impairment: Limited Hearing Ability: Normal Body Designer Required: No Beliefs That Will Affect Care: None marital status: Current Living Situation: Spouse current occupational status: retired How many Children do You have: 2 Other Information That Helps Us Care for You: No Feels Safe at Home: Yes Safety Concerns: Feels Safe At This Time Childhood Exposure to Second-Hand Smoke: No caffeine: Yes Dental Care, Regularly: Yes Physical Activity Frequency: Daily Seatbelt Use: always Sunscreen Use: Yes Assistive Devices: Glasses Review of Systems Review of Systems: All systems reviewed & are unremarkable except as noted in HPI & below Physical Exam Constitutional: WD/WN, vitals as above Neck: trachea midline, no thyromegaly Respiratory: normal respiratory effort, lungs clear to auscultation Cardiovascular: RRR, no murmur, no edema Gastrointestinal (Abdomen): normal bowel sounds, soft, nontender, no hepatosplenomegaly Results & Data Vital Signs (Past 12 Hours) Vital Signs Temp Pulse Pulse Pulse Resp BP BP 12/19/23 07:40 36.5 C 85 14 133/77 12/19/23 07:20 85 12/19/23 04:05 36.9 C 91 H 20 114/80 12/19/23 00:00 110 H Pulse Ox O2 Del Method 12/19/23 07:40 97 Room Air 12/19/23 07:20 12/19/23 04:05 96 Room Air 12/19/23 00:00 Laboratory Results 12/19/23 12/19/23 12/18/23 Range/Units 06:18 01:17 21:34 WBC 7.19 (4.8-10.8) K/ul RBC 4.20 L (4.70-6.10) M/uL Hgb 12.6 L 12.4 L 14.2 (14.0-18.0) g/dl Hct 36.9 L 35.2 L 40.2 L (42.0-52.0) % MCV 87.9 (80.0-100.0) fL MCH 30.0 (25.0-34.0) pg MCHC 34.1 (32.0-36.0) g/dL RDW Std Deviation 40.9 (36.4-46.3) fL RDW Coeff of Chase 12.7 (11.5-14.5) % Plt Count 147 (130-400) K/uL MPV 10.7 (9.4-12.4) fL Immature Gran % (Auto) 0.4 % Neut % (Auto) 64.0 % Lymph % (Auto) 23.9 % [place] % (Auto) 10.4 % Eos % (Auto) 1.0 % Baso % (Auto) 0.3 % Neut # (Auto) 4.60 (1.40-6.50) K/uL Lymph # (Auto) 1.72 (1.20-3.40) K/uL [place] # (Auto) 0.75 H (0.11-0.59) K/uL Eos # (Auto) 0.07 (0.00-0.50) K/uL Baso # (Auto) 0.02 (0.00-0.20) K/uL Immature Gran # (Auto) 0.03 (0.01-0.20) K/uL PT (9.0-12.0) Seconds INR (0.9-1.1) APTT (21-31) Seconds PTT Ratio Sodium 140 (136-145) mmol/L Potassium 4.2 (3.5-5.1) mmol/L Chloride 107 (98-107) mmol/L Carbon Dioxide 29 (21-32) mmol/L Anion Gap 4 (3-11) BUN 15 (6-23) mg/dl Creatinine 0.89 (0.6-1.4) mg/dl Est Cr Clr Drug Dosing 88.5 ml/min Est GFR ( Amer) 101.1 ml/min Est GFR (Non-Af Amer) 87.2 ml/min BUN/Creatinine Ratio 16.9 (10-20) Glucose 85 (70-99(Fasting)) mg/dl Calcium 9.0 (8.6-10.3) mg/dl Total Bilirubin (0.2-1.0) mg/dl AST (13-39) U/L ALT (7-52) U/L Alkaline Phosphatase (34-104) U/L Troponin I High Sens (0-20) pg/ml Total Protein (6.0-8.3) gm/dl Albumin (3.4-5.0) gm/dl Globulin (2.5-4.0) gm/dl Albumin/Globulin Ratio (0.9-2) POC Stool Occult Blood (Negative) Stl C. cayetanensis PCR (NotDetected) Stool Rotavirus A PCR (NotDetected) Stl Adenov F 40/41 PCR (NotDetected) Stool Astrovirus (PCR) (NotDetected) Stool Campylobacter PCR (NotDetected) Stl C. diff Tox B Gene (Neg) Stool Cryptosporidium PCR (NotDetected) Stl E.coli Shiga Tox PCR (NotDetected) Stl Enterotoxigenic E PCR (NotDetected) Stool EPEC (PCR) (NotDetected) Stool EAEC (PCR) (NotDetected) Stl E. histolytica PCR (NotDetected) Stool Giardia Lamblia PCR (NotDetected) Stool Salmonella PCR (NotDetected) Stool Sapovirus (PCR) (NotDetected) Stl P. shigelloides PCR (NotDetected) Stl Shigella/EIEC PCR (NotDetected) St Y.enterocolitica PCR (NotDetected) Stool Vibrio (PCR) (NotDetected) Stl Vibrio cholerae PCR (NotDetected) Stl Norovirus GI/GII PCR (NotDetected) SARS-CoV-2 (PCR) (Negative) Influenza Type A (PCR) (Neg) Influenza Type B (PCR) (Neg) RSV (RT-PCR) (Neg) Blood Type Antibody Screen 12/18/23 12/18/23 12/18/23 Range/Units 17:37 16:15 15:58 WBC (4.8-10.8) K/ul RBC (4.70-6.10) M/uL Hgb 13.0 L (14.0-18.0) g/dl Hct 38.0 L (42.0-52.0) % MCV (80.0-100.0) fL MCH (25.0-34.0) pg MCHC (32.0-36.0) g/dL RDW Std Deviation (36.4-46.3) fL RDW Coeff of Chase (11.5-14.5) % Plt Count (130-400) K/uL MPV (9.4-12.4) fL Immature Gran % (Auto) % Neut % (Auto) % Lymph % (Auto) % [place] % (Auto) % Eos % (Auto) % Baso % (Auto) % Neut # (Auto) (1.40-6.50) K/uL Lymph # (Auto) (1.20-3.40) K/uL [place] # (Auto) (0.11-0.59) K/uL Eos # (Auto) (0.00-0.50) K/uL Baso # (Auto) (0.00-0.20) K/uL Immature Gran # (Auto) (0.01-0.20) K/uL PT (9.0-12.0) Seconds INR (0.9-1.1) APTT (21-31) Seconds PTT Ratio Sodium (136-145) mmol/L Potassium (3.5-5.1) mmol/L Chloride (98-107) mmol/L Carbon Dioxide (21-32) mmol/L Anion Gap (3-11) BUN (6-23) mg/dl Creatinine (0.6-1.4) mg/dl Est Cr Clr Drug Dosing ml/min Est GFR ( Amer) ml/min Est GFR (Non-Af Amer) ml/min BUN/Creatinine Ratio (10-20) Glucose (70-99(Fasting)) mg/dl Calcium (8.6-10.3) mg/dl Total Bilirubin (0.2-1.0) mg/dl AST (13-39) U/L ALT (7-52) U/L Alkaline Phosphatase (34-104) U/L Troponin I High Sens (0-20) pg/ml Total Protein (6.0-8.3) gm/dl Albumin (3.4-5.0) gm/dl Globulin (2.5-4.0) gm/dl Albumin/Globulin Ratio (0.9-2) POC Stool Occult Blood Positive A (Negative) Stl C. cayetanensis PCR Not Detected (NotDetected) Stool Rotavirus A PCR Not Detected (NotDetected) Stl Adenov F 40/41 PCR Not Detected (NotDetected) Stool Astrovirus (PCR) Not Detected (NotDetected) Stool Campylobacter PCR Not Detected (NotDetected) Stl C. diff Tox B Gene Negative Cdiff Gene (Neg) Stool Cryptosporidium PCR Not Detected (NotDetected) Stl E.coli Shiga Tox PCR Not Detected (NotDetected) Stl Enterotoxigenic E PCR Not Detected (NotDetected) Stool EPEC (PCR) Not Detected (NotDetected) Stool EAEC (PCR) Not Detected (NotDetected) Stl E. histolytica PCR Not Detected (NotDetected) Stool Giardia Lamblia PCR Not Detected (NotDetected) Stool Salmonella PCR Not Detected (NotDetected) Stool Sapovirus (PCR) Not Detected (NotDetected) Stl P. shigelloides PCR Not Detected (NotDetected) Stl Shigella/EIEC PCR Not Detected (NotDetected) St Y.enterocolitica PCR Not Detected (NotDetected) Stool Vibrio (PCR) Not Detected (NotDetected) Stl Vibrio cholerae PCR Not Detected (NotDetected) Stl Norovirus GI/GII PCR Not Detected (NotDetected) SARS-CoV-2 (PCR) (Negative) Influenza Type A (PCR) (Neg) Influenza Type B (PCR) (Neg) RSV (RT-PCR) (Neg) Blood Type Antibody Screen 12/18/23 12/18/23 12/18/23 Range/Units 10:25 10:22 10:21 WBC 8.64 (4.8-10.8) K/ul RBC 4.60 L (4.70-6.10) M/uL Hgb 13.9 L (14.0-18.0) g/dl Hct 39.8 L (42.0-52.0) % MCV 86.5 (80.0-100.0) fL MCH 30.2 (25.0-34.0) pg MCHC 34.9 (32.0-36.0) g/dL RDW Std Deviation 40.2 (36.4-46.3) fL RDW Coeff of Chase 12.7 (11.5-14.5) % Plt Count 174 (130-400) K/uL MPV 10.6 (9.4-12.4) fL Immature Gran % (Auto) % Neut % (Auto) % Lymph % (Auto) % [place] % (Auto) % Eos % (Auto) % Baso % (Auto) % Neut # (Auto) (1.40-6.50) K/uL Lymph # (Auto) (1.20-3.40) K/uL [place] # (Auto) (0.11-0.59) K/uL Eos # (Auto) (0.00-0.50) K/uL Baso # (Auto) (0.00-0.20) K/uL Immature Gran # (Auto) (0.01-0.20) K/uL PT 11.0 (9.0-12.0) Seconds INR 1.0 (0.9-1.1) APTT 28 (21-31) Seconds PTT Ratio 1.0 Sodium 139 (136-145) mmol/L Potassium 4.1 (3.5-5.1) mmol/L Chloride 106 (98-107) mmol/L Carbon Dioxide 27 (21-32) mmol/L Anion Gap 6 (3-11) BUN 23 (6-23) mg/dl Creatinine 0.89 (0.6-1.4) mg/dl Est Cr Clr Drug Dosing 88.5 ml/min Est GFR ( Amer) 101.1 ml/min Est GFR (Non-Af Amer) 87.2 ml/min BUN/Creatinine Ratio 25.8 H (10-20) Glucose 102 H (70-99(Fasting)) mg/dl Calcium 9.3 (8.6-10.3) mg/dl Total Bilirubin 0.6 (0.2-1.0) mg/dl AST 18 (13-39) U/L ALT 19 (7-52) U/L Alkaline Phosphatase 63 (34-104) U/L Troponin I High Sens 2.6 (0-20) pg/ml Total Protein 6.7 (6.0-8.3) gm/dl Albumin 3.9 (3.4-5.0) gm/dl Globulin 2.8 (2.5-4.0) gm/dl Albumin/Globulin Ratio 1.4 (0.9-2) POC Stool Occult Blood (Negative) Stl C. cayetanensis PCR (NotDetected) Stool Rotavirus A PCR (NotDetected) Stl Adenov F 40/41 PCR (NotDetected) Stool Astrovirus (PCR) (NotDetected) Stool Campylobacter PCR (NotDetected) Stl C. diff Tox B Gene (Neg) Stool Cryptosporidium PCR (NotDetected) Stl E.coli Shiga Tox PCR (NotDetected) Stl Enterotoxigenic E PCR (NotDetected) Stool EPEC (PCR) (NotDetected) Stool EAEC (PCR) (NotDetected) Stl E. histolytica PCR (NotDetected) Stool Giardia Lamblia PCR (NotDetected) Stool Salmonella PCR (NotDetected) Stool Sapovirus (PCR) (NotDetected) Stl P. shigelloides PCR (NotDetected) Stl Shigella/EIEC PCR (NotDetected) St Y.enterocolitica PCR (NotDetected) Stool Vibrio (PCR) (NotDetected) Stl Vibrio cholerae PCR (NotDetected) Stl Norovirus GI/GII PCR (NotDetected) SARS-CoV-2 (PCR) NEGATIVE (Negative) Influenza Type A (PCR) Negative (Neg) Influenza Type B (PCR) Negative (Neg) RSV (RT-PCR) Negative (Neg) Blood Type A Positive Antibody Screen NEGATIVE Diagnostic Findings Abdomen/Pelvis CT 12/18/23 11:[address] WITH IV CONTRAST CT DOSE: 1229.5 mGy.cm HISTORY: abd pain, red blood per rectum TECHNIQUE: Multiaxial CT images of the abdomen and pelvis were performed following the use of intravenous contrast. A dose lowering technique was utilized adhering to the principles of ALARA. COMPARISON STUDY: Abdomen and pelvis CT 10/27/2022. FINDINGS: Minimal tree-in-bud nodules again noted within the right middle lobe. The left lung base is clear. No pneumoperitoneum. No pneumatosis. Degenerative changes within the lumbar spine. No acute fractures. The liver, gallbladder, pancreas, spleen, and adrenal glands are unremarkable. The kidneys enhance normally. No hydronephrosis. Mild calcified plaque within the normal caliber abdominal aorta. The main portal vein is patent. No retroperitoneal or pelvic lymphadenopathy. No pelvic free fluid. The prostate gland remains mildly enlarged. No bladder wall thickening. Moderate fecal retention. No bowel wall thickening or obstruction. Colonic diverticulosis. No evidence for acute diverticulitis. Normal appendix. IMPRESSION: 1. No bowel wall thickening or obstruction. 2. Colonic diverticulosis. No evidence for acute diverticulitis. 3. Moderate fecal retention. 4. Prostatomegaly, unchanged. ACT 112: Negative or not required by law. Electronically signed by: Ronald Cheatham M.D. 12/18/2023 12:07 PM (1) GIB (gastrointestinal bleeding) GI bleed type/associated pathology: unspecified gastrointestinal hemorrhage type Qualified Code(s): K92.2 - Gastrointestinal hemorrhage, unspecified
[2023-12-19] MEDS: PANTOprazole 40 MG in SYRINGE 0 ML IV SCH (10:51)
[2023-12-19 13:46] LABS: Hematocrit (blood only) 37.4 % (42.0-52.0)
--- NOTE | 2023-12-19 14:47 | Hospitalist Progress Note ---
Date of Service December 19, 2023 Assessment & Plan (1) Upper GI bleed: Plan: Loose/bloody stool at the beginning the morning of 12/17 x 4 episodes throughout the day Patient describes it as a "raspberry jelly-like" texture and color; denies melena Colonoscopy on 12/13 Hemoccult positive on arrival Hgb 13.9 on arrival - 13.0 on repeat this afternoon A/P revealed diverticulosis without evidence of diverticulitis Gi consulted - no emergent need to repeat scope at this time - monitor for continued bleeding and stool frequency Recheck H&H 2100 AM CBC (2) GERD (gastroesophageal reflux disease): Plan: Nexium 40 mg p.o. --> Protonix 40 mg IV daily Plan Disposition: continued inpatient stay DVT proh: SCDs, encourage ambultation Admission and Anticipated Discharge Date Admission Date: December 18, 2023 Subjective Patient seen earlier this morning. Had seen GI and was told he could eat. Denies abdominal pain Revisted this afternoon. No nausea with eating. Had one stool before lunch that was similar to prior. One stool after lunch that was more formed but still bloody. Reports lots of blood on the toilet paper thinks his hemorrhoid is acting up. Review of Systems Review of Systems: All systems reviewed & are unremarkable except as noted in Subjective Physical Exam Physical Exam: General: NAD, VS as above Resp: normal respiratory effort, lungs clear to auscultation CV: RRR, no murmur, Abd: normal bowel sounds, non tender, no hepatosplenomegaly Extremities: Moves all extremities, no edema Neuro: A&O x3, Skin: intact, no lesions noted Results & Data Results & Data Vital Signs (Past 12 Hours) Vital Signs Temp Pulse Pulse Pulse Resp BP BP 12/19/23 11:28 36.4 C L 88 15 123/79 12/19/23 07:40 36.5 C 85 14 133/77 12/19/23 07:20 85 12/19/23 04:05 36.9 C 91 H 20 114/80 Pulse Ox O2 Del Method 12/19/23 11:28 95 Room Air 12/19/23 07:40 97 Room Air 12/19/23 07:20 12/19/23 04:05 96 Room Air Laboratory Results CBC and chemistry reviewed PG Care Time/CCT Total # of Minutes Spent Total Time Spent with Patient: Total time spent is greater than 50% in coordination of care (as documented) at patient's floor/unit and/or counseling patient: Coding Level of Care Code 31611 SUB INP/OBS CARE 2MIN Diagnoses Upper GI bleed K92.2 GERD (gastroesophageal reflux disease) K21.9
[2023-12-19 22:13] LABS: Hematocrit (blood only) 35.7 % (42.0-52.0); Hemoglobin 12.3 g/dl (14.0-18.0)
[2023-12-20 08:23] LABS: Basophils # (auto) 0.02 K/uL (0.00-0.20); Basophils % (auto) 0.3 %; Eosinophils # (auto) 0.09 K/uL (0.00-0.50); Eosinophils % (auto) 1.3 %; Hemoglobin 12.6 g/dl (14.0-18.0); Immature Granulocytes # (auto) 0.02 K/uL (0.01-0.20); Immature Granulocytes % (auto) 0.3 %; Lymphocytes % (auto) 23.6 %; Mean Corpuscular Hemoglobin 29.9 pg (25.0-34.0); Mean Corpuscular Hgb Conc 34.1 g/dL (32.0-36.0); Mean Corpuscular Volume 87.9 fL (80.0-100.0); Mean Platelet Volume 10.3 fL (9.4-12.4); Monocytes # (auto) 0.67 K/uL (0.11-0.59); Monocytes % (auto) 9.9 %; Neutrophils # (auto) 4.39 K/uL (1.40-6.50); Neutrophils % (auto) 64.6 %; Platelet Count 169 K/uL (130-400); RDW Coefficient of Variation 12.8 % (11.5-14.5); RDW Standard Deviation 40.5 fL (36.4-46.3); Red Blood Count 4.21 M/uL (4.70-6.10); White Blood Count 6.79 K/ul (4.8-10.8)
[2023-12-20 08:42] LABS: BUN Creatinine Ratio 15.8 (10-20); Calcium 9.2 mg/dl (8.6-10.3); Creatinine Clr Calc Pharmacy 82.9 ml/min; Est GFR (African American) 94.3 ml/min; Est GFR (Non-African American) 81.3 ml/min; Potassium 3.8 mmol/L (3.5-5.1)
--- NOTE | 2023-12-20 08:50 | Gastroenterology Progress Note ---
Date of Service December 20, 2023 Assessment & Plan (1) GIB (gastrointestinal bleeding): Plan: Seems to have stopped bleeding although I think some of his bleeding was hemorrhoidal. Okay with me to discharge. He has appt with PCP tomorrow Admission and Anticipated Discharge Date Admission Date: December 18, 2023 Subjective Eating Easter breakfast. No more bleeding since yesterday. No BM's only passing gas. H/H are stable Physical Exam Physical Exam: Looks well Constitutional: WD/WN, vitals as above Results & Data Vital Signs (Past 12 Hours) Vital Signs Temp Pulse Pulse Resp BP BP Pulse Ox 12/20/23 07:38 37.1 C 85 15 135/85 97 12/20/23 06:38 77 12/20/23 03:00 36.7 C 80 18 119/83 98 12/20/23 00:33 105 H 12/19/23 23:02 36.8 C 86 18 128/78 98 O2 Del Method 12/20/23 07:38 Room Air 12/20/23 06:38 12/20/23 03:00 Room Air 12/20/23 00:33 12/19/23 23:02 Room Air (1) GIB (gastrointestinal bleeding) GI bleed type/associated pathology: unspecified gastrointestinal hemorrhage type Qualified Code(s): K92.2 - Gastrointestinal hemorrhage, unspecified
--- NOTE | 2023-12-20 09:17 | Discharge Summary ---
Discharge Summary Date of Service December 20, 2023 Notes For Next Care Provider Admitted for GI bleed - concern from recent colonoscopy vs hemorrhoidal. Hgb has been stable. Hold Aspirin and avoid NSAIDs. PCP and GI follow up. Medication Changes From Visit Hold ASA stop ibuprofen anusol for hemorroids Admission HPI Per Admitting Provider Jonas is a 68-year-old male with PMH of BPH, GERD, asthma, diverticulitis, and sleep disorder. He presented for loose/bloody stool that began the morning of 12/17. Patient reports that he has had 4 episodes of "jellylike" dark red stool throughout the day on 12/17. He reports that it has been loose and "raspberry- colored"; not necessarily dark, tarry stool. Of note, the patient had a colonoscopy on Wednesday 12/[address] Casillas, and reports he was feeling okay postop. Throughout the week he did endorse some intermittent LLQ pain, which he rated 5/10 at worst and 0/10 at present. No radiation. He characterizes it as a dull achy pain. He tried taking an antispasmodic, but this did not alleviate the pain. Patient occasionally does take Tylenol for his knees. He denies any recent ibuprofen or Advil use. He does take aspirin daily as a prophylactic; he reports that he was feeling okay postop. He did not take any of his regular morning medications; no recent change in medications. Patient last ate and drank the night prior on 12/16. No prior experiences like this one. No PMH of gastric ulcers, blood transfusions, or GI bleeds. He does have a history of diverticulosis, and was placed on ciprofloxacin 1 year ago for presumed diverticulitis. No recent change in diet. Patient's vitals are stable at time of admission; normotensive. ED course: NSS 1000 mL IV LR 1000 mL IV ROS: Patient endorses malaise, sinus congestion, headache, intermittent LLQ pain, bloody (jelly-like) stool x 4 episodes, and straining with urination. Patient denies fever, chills, dizziness, lightheadedness, chest pain, SOB, N/V, blood in urine, or burning with urination. Principal Dx & Hospital Course #1 = Principal Diagnosis (1) Upper GI bleed: Loose/bloody stool at the beginning the morning of 12/17 x 4 episodes throughout the day Patient describes it as a "raspberry jelly-like" texture and color; denies melena Colonoscopy on 12/13 Hemoccult positive on arrival Hgb 13.9 on arrival - 13.0 on repeat this afternoon A/P revealed diverticulosis without evidence of diverticulitis Gi consulted - no emergent need to repeat scope at this time - monitor for continued bleeding and stool frequency Hgb remains stable Discharge to home today. hold aspirin. anusol for hemorrhoid. PCP appointment tomorrow (2) GERD (gastroesophageal reflux disease): Continue daily Nexium 40 mg p.o. Plan Dispo: discharge to home today Discharge Exam General: NAD, VS as above Resp: normal respiratory effort, lungs clear to auscultation CV: RRR, no murmur, Abd: normal bowel sounds, non tender, no hepatosplenomegaly Extremities: Moves all extremities, no edema Neuro: A&O x3, Skin: intact, no lesions noted Updated Medication List Medication Instructions Recorded Confirmed Type albuterol sulfate 90 mcg/actuation 2 puff inhalation Q6H PRN rescue 10/27/22 12/18/23 History aerosol inhaler (Ventolin HFA) inhaler ascorbic acid (vitamin C) 250 mg 250 mg PO BID 10/27/22 12/18/23 History tablet aspirin 81 mg tablet,delayed 81 mg PO QPM 10/27/22 12/18/23 History release (Adult Low Dose Aspirin) cholecalciferol (vitamin D3) 125 125 mcg PO QAM 10/27/22 12/18/23 History mcg (5,000 unit) capsule ibuprofen 200 mg tablet 400 mg PO Q6H PRN Pain 10/27/22 12/18/23 History melatonin 3 mg capsule 3 mg PO HS PRN Insomnia 10/27/22 12/18/23 History metronidazole 0.75 % topical gel 1 applic topical BID 10/27/22 12/18/23 History minocycline 50 mg capsule 50 mg PO QPM roscea 10/27/22 12/18/23 History montelukast 10 mg tablet 10 mg PO HS 10/27/22 12/18/23 History vitamin B complex 1 tab PO DAILY 10/27/22 12/18/23 History fluticasone propionate 50 2 spray intranasal DAILY 04/27/23 12/18/23 History mcg/actuation nasal spray,suspension acetaminophen 650 mg 1,300 mg PO HS 11/30/23 12/18/23 History tablet,extended release (Tylenol 8 Hour) antiarthritic combination no.2 900 900 mg PO BID 11/30/23 12/18/23 History mg tablet (glucosamine-chondroitin) alprazolam 0.5 mg tablet (Xanax) 0.5 mg PO HS 12/02/23 12/18/23 History esomeprazole magnesium 40 mg 40 mg PO QPM 12/02/23 12/18/23 History capsule,delayed release (Nexium) fexofenadine 180 mg tablet 180 mg PO QAM PRN seasonal 12/02/23 12/18/23 History allergies hyoscyamine sulfate 0.125 mg 0.125 mg PO TID 12/02/23 12/18/23 History tablet (Levsin) quercetin 250 mg PO BID 12/02/23 12/18/23 History vitamin E 400 unit tablet 400 unit PO QPM 12/02/23 12/18/23 History zinc 15 mg tablet 15 mg PO BID 12/02/23 12/18/23 History hydrocortisone acetate 25 mg 25 mg ND BID PRN hemorrhoids #12 ea 12/20/23 Rx rectal suppository (Anucort-HC) Hospital Stay Data Consultations 12/18/23 16:31 ED Decision to Admit Stat 12/18/23 21:34 Consult Gastroenterology Routine Diagnostic Imagining Performed Abdomen/Pelvis CT 12/18/23 11:[address] WITH IV CONTRAST CT DOSE: 1229.5 mGy.cm HISTORY: abd pain, red blood per rectum TECHNIQUE: Multiaxial CT images of the abdomen and pelvis were performed following the use of intravenous contrast. A dose lowering technique was utilized adhering to the principles of ALARA. COMPARISON STUDY: Abdomen and pelvis CT 10/27/2022. FINDINGS: Minimal tree-in-bud nodules again noted within the right middle lobe. The left lung base is clear. No pneumoperitoneum. No pneumatosis. Degenerative changes within the lumbar spine. No acute fractures. The liver, gallbladder, pancreas, spleen, and adrenal glands are unremarkable. The kidneys enhance normally. No hydronephrosis. Mild calcified plaque within the normal caliber abdominal aorta. The main portal vein is patent. No retroperitoneal or pelvic lymphadenopathy. No pelvic free fluid. The prostate gland remains mildly enlarged. No bladder wall thickening. Moderate fecal retention. No bowel wall thickening or obstruction. Colonic diverticulosis. No evidence for acute diverticulitis. Normal appendix. IMPRESSION: 1. No bowel wall thickening or obstruction. 2. Colonic diverticulosis. No evidence for acute diverticulitis. 3. Moderate fecal retention. 4. Prostatomegaly, unchanged. ACT 112: Negative or not required by law. Electronically signed by: Ronald Cheatham M.D. 12/18/2023 12:07 PM Pending Results Patient Have Any Pending Studies at Discharge: No Discharge Instructions Given to Patient (Per Discharging Provider) Mr. Fried, You were hospitalized after having GI bleeding. Your hemoglobin (blood count) has remained stable and your bleeding has improved. Continue to monitor for blood in your stools. Continue taking the Nexium everyday. Please do not take the Aspirin until cleared by GI. Anusol was sent to the pharmacy to use for hemorrhoid pains. Would also avoid NSAIDs (ibuprofen, aleve, naproxen) for pain. It is okay to take Tylenol. Keep your PCP appointment for tomorrow. Recommend follow up with Dr. Casillas in the next 1-2 weeks. Total Time Total Time Spent Total Time Spent (In Minutes): Time spend day of discharge 35 minutes including direct patient care, medication reconciliation, documentation, review of labs and images, and coordination of care. Coding Level of Care Code 85944 INP/OBS DISCH >30 MIN Diagnoses Upper GI bleed K92.2 GERD (gastroesophageal reflux disease) K21.9
== END 2023-12-20 13:30 | disposition home or self-care (01) ==
LOC: 2N 09:55 → ED 09:55 → SUATTDRO 17:23 → 2N 21:28